=== PATIENT | female | born 1985 | race Caucasian/White ===

== ENCOUNTER 2025-04-04 11:41 | Emergency (ER) | payer OTHER, SELFPAY ==
--- NOTE | 2025-04-04 11:46 | ED.FEMALEGU ---
HPI - Female Genitourinary General Chief complaint: Urogenital-Female Stated complaint: Uti Symptoms Time Seen by Provider: 04/04/25 12:00 Source: patient Mode of arrival: ambulatory Limitations: no limitations History of Present Illness HPI Narrative: Alejandrina is a 40 year old female patient presenting to the clinic today with c/o possible UTI times 2-3 days. She reports burning, frequency, urgency, and low urine output. Denies any fevers, chills, nausea, vomiting. Reports she does have some lower abdomen/bladder discomfort and some pain to her right flank. History of kidney infection in the past. Last menstrual period was 1 month ago. No history of kidney stones. Related Data Allergies Allergy/AdvReac Type Severity Reaction Status Date / Time Penicillins Allergy Severe Anaphylacti Verified 04/04/25 12:13 c aspirin Allergy Intermediate Hives / Verified 04/04/25 12:13 Red Face diphenhydramine Allergy Intermediate Hives / Verified 04/04/25 12:13 Red Face Review of Systems Review of Systems: Pertinent positives per HPI. Patient denies any fever, chills, rash, headache, visual changes, dizziness, cough, shortness of breath, chest pain, palpitations, nausea, vomiting, diarrhea, constipation. PMFSH Comments At the time of my signature, I reviewed and agree with the nursing past medical, surgical, social, and family history. There is no relevant family history pertinent to the patient complaint. Exam Narrative: General: Well-developed, well nourished, in no apparent distress. Head: Normocephalic, atraumatic. Cardio: Regular rate and rhythm, s1 and s2 normal, no murmur appreciated. Resp: Clear to auscultation bilaterally, no rhonchi, rales, wheezing or rubs. Abdomen: Soft, pliable, bowel sounds present in all quadrants, suprapubic tender to palpation, no organomegly, right-sided CVAT tenderness. Course Course Level of Care: Express Care Visit Vital Signs Vital signs: Vital Signs Temperature 36.5 C 04/04/25 11:50 Pulse Rate 88 04/04/25 11:50 Respiratory Rate 20 04/04/25 11:50 Blood Pressure 118/97 H 04/04/25 11:50 Pulse Oximetry 100 04/04/25 11:50 Oxygen Delivery Room Air 04/04/25 11:50 Temperature 36.5 C 04/04/25 11:50 Pulse Rate 88 04/04/25 11:50 Respiratory Rate 20 04/04/25 11:50 Blood Pressure 118/97 H 04/04/25 11:50 Pulse Oximetry 100 04/04/25 11:50 Oxygen Delivery Room Air 04/04/25 11:50 MDM MDM Narrative Medical decision making narrative: At the time of visit patient is resting comfortably on the exam table. Patient appears to be nontoxic. C/o possible UTI times 2-3 days. She reports burning, hematuria, frequency, urgency, and low urine output. Denies any fevers, chills, nausea, vomiting.. Reports she does have some lower abdomen/bladder discomfort and some pain to her right flank. Last menstrual period was 1 month ago. History of kidney infection in the past. No history of kidney stones. On exam patient has soft, pliable, nondistended abdomen, tenderness over the suprapubic area, right CVAT tenderness, no organomegaly. Urine dip and bedside test was ordered Labs: Urinalysis positive for protein and blood. We will send urine for culture. Bedside test was negative. Plan: I suspect patient has UTI/possible early pyelo. No history of kidney stones. Prescription for Bactrim DS was sent to the pharmacy. Supportive measures were discussed with the patient and they voiced understanding discharge instructions and agrees to treatment plan. Return precautions reviewed Differential Diagnosis Differential Diagnosis: Differential diagnostic considerations for female urogenital issues include urinary tract infection, bacterial vaginosis, cervicitis, ovarian cyst, vaginitis, STI exposure, ovarian torsion, ectopic , cyst of Bartholin?s gland, cystitis, dysmenorrhea. Lab Data Labs: Lab Results 04/04/25 Range/Units 11:56 POC Urine Color Yellow POC Urine Clarity Clear POC Urine pH 6.0 POC Ur Specif Holliday 1.030 POC Urine Protein 2+ (Negative) POC Ur Glucose (UA) Negative (Negative) POC Urine Ketones Negative (Negative) POC Urine Blood 2+ (Negative) POC Urine Nitrite Negative (Negative) POC Urine Bilirubin Negative (Negative) POC Urine Urobilinogen 0.2 POC U Leukocyte Esteras Negative (Negative) Discharge Plan Discharge Clinical Impression: UTI (urinary tract infection) Qualifiers: Urinary tract infection type: acute cystitis Hematuria presence: with hematuria Qualified Code(s): N30.01 - Acute cystitis with hematuria Patient Disposition: Home Condition: Stable Instructions: Antibiotic Form, Urinary Tract Infection in Women (ED) Additional Instructions: UA positive for protein and blood. We will send urine for culture Bedside test was negative. Take Bactrim as prescribed Increase fluids and stay well hydrated Wipe front to back. May use wet wipes. Avoid tub baths If sexually active- pee before and after intercourse. Wear cotton panties Avoid tight clothing up against the genitals Follow up with your PCP in 1 week if symptoms persist. Patient Language: French Prescriptions: New sulfamethoxazole-trimethoprim [Bactrim DS] 800-160 mg tablet 1 tablet PO Q12H 7 Days Qty: 14 0RF Follow-up/Referrals: PHYSICIAN,[employer]CH[employer]IC [Primary Care Provider, Internal Medicine] Time of Disposition: 12:06 Quality NIHSS Nursing Documentation ED NIHSS nursing documentation: reviewed/agree
[2025-04-04 11:50] VITALS: BP 118/97; PULSE 88; RESP 20; TEMP 36.5; O2SAT 100
[2025-04-04 11:59] LABS: EDUAAPPEAR Clear; EDUABILI Negative (Negative); EDUABLOOD 2+ (Negative); EDUACOLOR1 Yellow; EDUAGLUCOSE Negative (Negative); EDUAKETONE Negative (Negative); EDUALEUKO Negative (Negative); EDUANITRATE Negative (Negative); EDUAPH 6.0; EDUAPROTEIN 2+ (Negative); EDUASPGRAVITY 1.030; EDUAUROBILI 0.2
[2025-04-04 12:19] LABS: BEDSIDEPREGUCG Negative (Negative)
== END 2025-04-04 12:10 | disposition home or self-care (01) ==
PROVIDERS: Emergency Provider Nurse Practitioner Family
DX: N30.01 Acute cystitis with hematuria (principal)
CPT/HCPCS: 81003; 81025; 87086; 99213; G0463

== ENCOUNTER 2025-04-05 17:35 | Emergency (ER) | payer OTHER, SELFPAY ==
[2025-04-05 17:36] VITALS: BP 147/86; PULSE 88; RESP 18; TEMP 36.4; O2SAT 100
[2025-04-05 18:58] LABS: Add Urine Microscopic? YES; Appearance Urine Clear (Clear); Glucose Urine UA Negative (Negative); Leukocyte Esterase Ur Trace LEU/UL (Negative); Need Manual Microscopic Reviewed; Nitrate Urine Negative (Negative); Non Pathogenic Casts 0-2; Specific Grav Ur 1.016 (1.001-1.035)
[2025-04-05 20:17] VITALS: BP 118/84; PULSE 85; RESP 19; TEMP 36.5; O2SAT 99
[2025-04-05 22:56] VITALS: BP 122/73; PULSE 87; RESP 18; TEMP 36.9; O2SAT 98
[2025-04-06 01:12] VITALS: BP 129/89; PULSE 88; RESP 18; TEMP 36.6; O2SAT 99
--- OUTSIDE RECORDS SUMMARY | 2025-04-06 01:51 | XMS_ITS | Data Portability ---
Author Organization [facility] PRIETO Bruno [facility] Address [address] [place] [address] Care Team Providers Care Bindery Library Technical Assistant Name Role Phone HANNABRAEDEN JIGNESH Primary Care Provider CARLOS AMAYA Credit Interviewer Unavailable Assessment No assessment recorded. Plan of Treatment Reminders Order Date Submit Date Provider Last Modified By Organization Details Last Modified Time Details Appointments None record ed. Lab cytolo gy report , thin prep, smear or scrapi ng, cervic al or vagina l 2023 024 [facility], [address], [address], [place], [address], 4 16:12:33 estrad iol, serum 2023 024 [facility], [address], [address], [place], [address], 4 07:08:41 testos terone , free + total, serum 2023 024 [facility], [address], [address], [place], [address], 4 07:08:40 TSH, ultra- sensit [place], serum 2023 024 [facility], [address], [address], [place], [address], 4 06:17:05 HbA1c (hemog lobin A1c), blood 2023 024 [facility], [address], [address], [place], [address], 4 06:17:06 cytolo gy report , thin prep, smear or scrapi ng, cervic al or vagina l 2019 020 [facility], [address], [address], [place], [address], 0 16:13:05 CBC w/ auto diff 2019 020 [place] [id number] [facility], [address] [place] [address], [address], [place], [address], 0 11:45:49 Referral clinic al therap ist referr al 2023 024 [facility], [address] [place] [address], [address], 4 17:31:03 Procedures None record ed. Surgeries None record ed. Imaging None record ed. Medication Orders fluoxe christiano 20 mg capsul e 2023 024 [id number], [address], [place], [place], [id number], 4 11:18:51 Prenat al 28 mg iron-8 00 mcg tablet [address] [id number], [address], [place], [place], [id number], 4 16:31:22 NuvaRi ng 0.12 mg-0.0 15 mg/24 hr vagina l 2019 020 [id number], [address], [place], [place], [id number], 10:47:00 Patient TargetsNo targets recorded. Patient Instructions Encounter Date Encounter Id Patient Instructions Last Modified By Organization Details Last Modified Time 11/17/2023 [id number] Attending Physician Attestation I did not personally see or examine the patient with the resident. I was physically present to provide indirect supervision through entire encounter. I have reviewed the documentation and agree with the history, physical findings, work-up, and medical decision making as recorded. Valenitn Garcia MD [facility]met[facility] Not available 11/17/2023 12:35:40 11/26/2023 [id number] A healthy lifestyle: care instructions [facility] Not available 11/26/2023 17:07:50 01/20/2024 [id number] A healthy lifestyle: care instructions [place] [id number] Not available 01/20/2024 11:18:38 learning about mood disorders [place] [id number] Not available 01/20/2024 11:18:38 Reason for Referral Clinical Therapist Referral for Irritability and anger Referring Physician: Billy Bradley, PURLER, Encounter Date: 11/26/2023 Results Created Date Observation Date Name Description Value Unit Range Abnormal Flag Note LastModifiedBy Organization Detail LastModifiedTime 01/28/2001/30/2020 cytol ogy repor t, thin prep, smear or scrap ing, cervi kelton or vagin al chlamydia, nuc. acid amp Negati ve negati ve Not Available [facility] ([facility]) [address] [place], [address], 02/01/2020 16:13:05 01/28/2001/30/2020 cytol ogy repor t, thin prep, smear or scrap ing, cervi kelton or vagin al gonococcus, nuc. acid amp Negati ve negati ve Not Available [facility] ([facility]) [address] [place], [address], 02/01/2020 16:13:05 01/28/2001/30/2020 cytol ogy repor t, thin prep, smear or scrap ing, cervi kelton or vagin al trich vag by PATRICIA Negati ve negati ve Not Available [facility] ([facility]) [address] [place], [address], 02/01/2020 16:13:05 01/28/2002/01/2020 cytol ogy repor t, thin prep, smear or scrap ing, cervi kelton or vagin al diagnosis: Chico mccann NEGAT [place] FOR INTRA EPITH ELIAL LESIO N OR ALBERTO ROJAS . CELLU LAR [place] ES ASSOC IATED WITH INFLA MMATI ON ARE PRESE NT. Not Available [facility] ([facility]) [address] [place], [address], 02/01/2020 16:13:05 01/28/2002/01/2020 cytol ogy repor t, thin prep, smear or scrap ing, cervi kelton or vagin al specimen adequacy: Chico mccann Satis facto ry for evalu ation . Endoc ervic al and/o r squam ous metap lasti c cells (endo cervi kelton compo nent) are prese nt. Not Available [facility] ([facility]) [address] [place], [address], 02/01/2020 16:13:05 01/28/2002/01/2020 cytol ogy repor t, thin prep, smear or scrap ing, cervi kelton or vagin al clinician provided ICD10: Chico mccann Z39.2 V24.2 Not Available [facility] ([facility]) [address] [place], [address], 02/01/2020 16:13:05 01/28/2002/01/2020 cytol ogy repor t, thin prep, smear or scrap ing, cervi kelton or vagin al performed by: Chico Kuhn ond, Cytot echno kurtis t (ASCP ) Not Available [facility] ([facility]) [address] [place], [address], 02/01/2020 16:13:05 01/28/2002/01/2020 cytol ogy repor t, thin prep, smear or scrap ing, cervi kelton or vagin al . . Not Available [facility] ([facility]) [address] [facility], [place], [address], 02/01/2020 16:13:05 01/28/20 20 02/01/2020 cytol ogy repor t, thin prep, smear or scrap ing, cervi kelton or vagin al note: Commen t The Pap smear is a scree beckie test desig joellen to aid in the detec tion of jorge ligna nt and malig nant condi tions of the uteri ne cervi x. It is not a diagn ostic proce dure and shoul d not be used as the sole means of detec ting cervi kelton cance r. Both false -posi tive and false -nega tive repor ts do occur . Not Available [facility] ([facility]) [address] [facility], [place], [address], 02/01/2020 16:13:05 01/28/2002/01/2020 cytol ogy repor t, thin prep, smear or scrap ing, cervi kelton or vagin al test methodology: Commen t This liqui d based ThinP rep(R ) pap test was scree joellen with the use of an image guide d systsandhya m. Not Available [facility] ([facility]) [address] [facility], [place], [address], 02/01/2020 16:13:05 01/28/2002/01/2020 cytol ogy repor t, thin prep, smear or scrap ing, cervi kelton or vagin al HPV aptima Negati ve negati ve This nucle ic acid ampli ficat ion test detec ts fourt een high- risk HPV types (16,1 8,31, 33,35 ,39,4 5,51, 52,56 ,58,5 9,66, 68) witho ut diffe renti ation . Not Available [facility] ([facility]) [address] [facility], [place], [address], 02/01/2020 16:13:05 11/17/19 24 11/18/2023 TSH RFX ON ABNOR MAL TO FREE T4 TSH 2.960 uIU/m L 0.450- 4.500 Not Available [facility] ([facility]) [address] [facility], [place], [address], 11/18/2023 06:17:05 11/17/1911/17/2023 HEMOG LOBIN A1C hemoglobin A1C 5.5 % 4.8-5. 6 Predi abete s: 5.7 - 6.4 Diabe laura: >6.4 Glyce dana contr ol for adult s with diabe laura: <7.0 Not Available [facility] ([facility]) [address] [facility], [place], [address], 11/18/2023 06:17:06 11/26/19 24 11/27/2023 IGP, APTIM A HPV, RFX 16/18 ,45 HPV aptima NEGATI VE negati ve This nucle ic acid ampli ficat ion test detec ts fourt een high- risk HPV types (16,1 8,31, 33,35 ,39,4 5,51, 52,56 ,58,5 9,66, 68) witho ut diffe renti ation . Not Available [facility] ([facility]) [address] [facility], [place], [address], 11/28/2023 16:12:33 11/26/19 24 11/28/2023 IGP, APTIM A HPV, RFX 16/18 ,45 diagnosis: COMMEN T NEGAT [place] FOR INTRA EPITH ELIAL LESIO N OR MALIG CRYSTAL . Not Available [facility] ([facility]) [address] [facility], [place], [address], 11/28/2023 16:12:33 11/26/19 24 11/28/2023 IGP, APTIM A HPV, RFX 16/18 ,45 specimen adequacy: CHICO Mccann Satis facto ry for evalu ation . Endoc ervic al and/o r squam ous metap lasti c cells (endo cervi kelton compo nent) are prese nt. Not Available [facility] ([facility]) [address] [place], [address], 11/28/2023 16:12:33 11/26/19 24 11/28/2023 IGP, APTIM A HPV, RFX 16/18 ,45 clinician provided ICD10: CHICO Mccann Z01.4 19 R45.4 Not Available [facility] ([facility]) [address] [place], [address], 11/28/2023 16:12:33 11/26/19 24 11/28/2023 IGP, APTIM A HPV, RFX 16/18 ,45 performed by: CHICO arthur Radcl iff, Cytot echjavier hull t (ASCP ) Not Available [facility] ([facility]) [address] [place], [address], 11/28/2023 16:12:33 11/26/19 24 11/28/2023 IGP, APTIM A HPV, RFX 16/18 ,45 . . Not Available [facility] ([facility]) [address] [place], [address], 11/28/2023 16:12:33 11/26/19 24 11/28/2023 IGP, APTIM A HPV, RFX 16/18 ,45 note: CHICO Mccann The Pap smear is a scree beckie test desig joellen to aid in the detec tion of jorge ligna nt and malig nant condi tions of the uteri ne cervi x. It is not a diagn ostic proce dure and shoul d not be used as the sole means of detec ting cervi kelton cance r. Both false -posi tive and false -nega tive repor ts do occur . Not Available [facility] ([facility]) [address] [place], [address], 11/28/2023 16:12:33 11/26/19 24 11/28/2023 IGP, APTIM A HPV, RFX 16/18 ,45 test methodology: COMMEN T This liqui d based ThinP rep(R ) pap test was felicitae joellen with the use of an image guide malia bryant Not Available [facility] ([facility]) [address] [place], [address], 11/28/2023 16:12:33 11/26/19 24 11/28/2023 IGP, APTIM A HPV, RFX 16/18 ,45 HPV genotype reflex COMMEN T Crite lauren not met, HPV Genot ype not perfo rmed. Not Available [facility] ([facility]) [address] [place], [address], 11/28/2023 16:12:33 11/26/19 24 11/27/2023 TESTO STERO NE,FR EE AND TOTAL testosterone 18 NG/dL 8-60 Not Available [facility] ([facility]) [address] [place], [address], 11/30/2023 07:08:40 11/26/19 24 11/29/2023 TESTO STERO NE,FR EE AND TOTAL free testosterone (direct) 0.7 pg/mL 0.0-4. 2 Not Available [facility] ([facility]) [address] [place], [address], 11/30/2023 07:08:40 11/26/19 24 11/27/2023 ESTRA DIOL estradiol 104.0 pg/mL Adult Femal e Range Folli cular phase 12.5 - 166.0 Ovula tion phase 85.8 - 498.0 Lutea l phase 43.8 - 211.0 Postm enopa usal <6.0 - 54.7 Pregn aden 1st trime ster 215.0 - >4300 .0 Onel ECLIA metho dolog y Not Available [facility] ([facility]) [address], [place], [address], 11/30/2023 07:08:41 Result Notes None recorded. Problems No Known Problems Procedures Surgical History Date Name Laterality Status Provider Name and Address Organization Details Recorded Time 11/26/2023 Date of Last Pap Smear completed Swetha Elliott RN [facility] 11/28/2023 17:33:09 Imaging Results None recorded. Procedure Notes None recorded. Medical Equipment None Reported. Allergies Allergen ID Allergen Name Allergen Category Reaction Reaction Severity Criticality Documentation Date Start Date Code Code System Note Provider Name and Address Organization Details Recorded Time 09224 aspirin medicatio n edema hives Not available Not available Not available 12/30/2016 1191 RxNorm PORTER Waters, [facility] 7 11:43:23 95901 Product containin g penicilli n (product) medicatio n other Not available Not available 12/30/2016 92044 8001 SNOMED PORTER Waters, [facility] 7 11:44:23 94694 Benadryl medicatio n other Not available Not available 12/30/201679155 7 RxNorm PORTER Waters, [facility] 7 11:44:38 Medications Name Sig Start Date Stop Date Status Note LastModified by Organization Details LastModified Time doxycycline hyclate 100 mg capsule 11/16 completed Not Available Not Available Not Available clindamycin HCl 300 mg capsule TAKE ONE CAPSULE BY MOUTH EVERY 6 HOURS FOR SEVEN DAYS 04/11 completed Not Available Not Available Not Available Stool Softener 100 mg capsule 04/11 completed Not Available Not Available Not Available azithromyci n 250 mg tablet TK 2 TS PO ON DAY 1, THEN TK 1 T PO D FOR 4 DAYS 11/16 completed Not Available Not Available Not Available hydrocodone 5 mg-acetamin ophen 325 mg tablet TAKE ONE TABLET BY MOUTH EVERY 6 HOURS NEEDED FOR PAIN 04/11 completed Not Available Not Available Not Available promethazin e 12.5 mg tablet Take 1 tablet 4 times a day by oral route as needed. 04/11 completed Not Available Not Available Not Available metronidazo le 0.75 % (37.5 mg/5 gram) vaginal gel Insert 1 applicato rful every day by vaginal route. 09/06 completed Not Available Not Available Not Available prednisone 20 mg tablet 05/26 completed Not Available Not Available Not Available permethrin 5 % topical cream 11/16 completed Not Available Not Available Not Available clindamycin HCl 150 mg capsule 04/11 completed Not Available Not Available Not Available acetaminoph en 300 mg-codeine 30 mg tablet TAKE ONE TABLET BY MOUTH FOUR TIMES DAILY NEEDED FOR PAIN 11/16 completed Not Available Not Available Not Available acyclovir 400 mg tablet Take 1 tablet 5 times a day by oral route for 7 days. 04/11 completed Not Available Not Available Not Available sulfamethox azole 800 mg-trimetho prim 160 mg tablet TAKE 1 TABLET BY MOUTH TWICE DAILY FOR 7 DAYS 11/16 completed Not Available Not Available Not Available Vitamin tablet Take 1 tablet every day by oral route. 05/17 completed Not Available Not Available Not Available cephalexin 500 mg capsule TAKE ONE CAPSULE BY MOUTH TWICE DAILY X 10 DAYS 11/16 completed Not Available Not Available Not Available ferrous sulfate 325 mg (65 mg iron) tablet 04/11 completed Not Available Not Available Not Available triamcinolo ne acetonide 0.1 % topical ointment APPLY A THIN LAYER TO THE AFFECTED AREA(S) BY TOPICAL ROUTE 2 TIMES PER DAY 04/11 completed Not Available Not Available Not Available sertraline 25 mg tablet TAKE 1 TABLET BY MOUTH EVERY DAY 04/11 completed Not Available Not Available Not Available ibuprofen 600 mg tablet TAKE ONE TABLET BY MOUTH EVERY 6 HOURS NEEDED FOR PAIN 04/11 completed Not Available Not Available Not Available methylpredn isolone 4 mg tablets in a dose pack Follow dose pack instructi ons 12/14 completed Not Available Not Available Not Available norethindro ne (contracept [place]) 0.35 mg tablet TAKE 1 TABLET BY MOUTH EVERY DAY 04/11 completed Not Available Not Available Not Available fluoxetine 20 mg capsule one po qday CALL THE OFFICE FOR AN APPT PLEASE 2024 active Not Available Not Available Not Avai lable Ventolin HFA 90 mcg/actuati on aerosol inhaler 04/11 completed Not Available Not Available Not Available NuvaRing 0.12 mg-0.015 mg/24 hr vaginal Insert 1 vaginal ring every month by vaginal route. 05/17 completed Not Available Not Available Not Available Havrix (PF) 1,440 CASPER unit/mL intramuscul ar syringe 10/29 completed Not Available Not Available Not Available RhoGAM Ultra-Filte red PLUS 1,500 unit (300 mcg) intramuscul ar syringe Inject 1 syringe by intramusc ular route. 04/11 completed Not Available Not Available Not Available Recombivax HB (PF) 10 mcg/mL intramuscul ar suspension 10/29 completed Not Available Not Available Not Available 28 mg iron-800 mcg tablet TAKE 1 TABLET DAILY; please call the office for an overdue appt please 2024 active Not Available Not Available Not Avai lable Slynd 4 mg (28) tablet TAKE 1 TABLET BY MOUTH EVERY DAY 04/11 completed Not Available Not Available Not Available ID NOW COVID-19 Test Kit TEST DIRECTED 04/11 completed Not Available Not Available Not Available Vitals Date Recorded Body height Body mass index (BMI) Body weight Provider Name and Address Organization Details Last Updated DateTime 04/11/2021 167.64 cm 26.3 kg/m2 05694.7 g Lidia Jay [place] [facility] 04/11/2021 10:12:25 Date Recorded Body height Body mass index (BMI) Body weight Heart rate Oxygen saturation Body temperature Respiratory rate Systolic And Diastolic Provider Name and Address Organization Details Last Updated DateTime 167.64 cm 28 kg/m2 58453.2 8 g 93 /min 98 % 97.7 [degF] 16 /min 117/79 mm[Hg] Thalia Haynes [place] - [facility] 4 10:33:24 Date Recorded Body height Body mass index (BMI) Body weight Systolic And Diastolic Provider Name and Address Organization Details Last Updated DateTime 11/26/2023 167.64 cm 27.7 kg/m2 00273.17 g 131/83 mm[Hg] Thalia Haynes MA [facility] 11/26/2023 11:32:57 Date Recorded Body height Body mass index (BMI) Body weight Heart rate Systolic And Diastolic Provider Name and Address Organization Details Last Updated DateTime 01/20/2024 167.64 cm 26.8 kg/m2 76760.33 g 73 /min 131/80 mm[Hg] Dorothy Ramos MA [facility] 01/20/2024 10:51:59 Date Recorded Body height Body mass index (BMI) Body weight Systolic And Diastolic Provider Name and Address Organization Details Last Updated DateTime 01/28/2020 167.64 cm 25.7 kg/m2 29913.186 83 g 108/64 mm[Hg] Thalia Haynes MA [facility] 01/28/2020 11:07:31 Social History Question Answer Notes LastModified by Organizat ion Details LastModified Time Tobacco Smoking Status Never Smoker Vanessa Chambers MA [facility], [facility] 12/30/2016 11:46:19 What Is Your Level Of Caffeine Consumption? Moderate [email or web address] Information not available 04/11/2021 In The 14 Days Before Symptom Onset, Have You Had Close Contact With A Laboratory-confirm ed COVID-19 While That Case Was Ill? No [email or web address] Information n ot available 04/11/2021 In The 14 Days Before Symptom Onset, Have You Had Close Contact With A Person Who Is Under Investigation For COVID-19 While That Person Was Ill? No Information not available 04/11/2021 Have You Been To An Area Known To Be High Risk For COVID-19? No Information not available 04/11/2021 Have There Been Any Changes To Your Family Or Social Situation? No [email or web address] Information no t available 04/11/2021 What Was The Date Of Your Most Recent Tobacco Screening? 11/26/2023 Information not available 11/26/2023 Do You Use Your Seat Belt Or Car Seat Routinely? Yes [email or web address] Information not available 04/11/2021 Are You Sexually Active? Yes Information not available 04/11/2021 Do You Have Smoke And Carbon Monoxide Detectors In Your Home? Yes Information not available 11/26/2023 Are You Passively Exposed To Smoke? No [email or web address] Information no t available 04/11/2021 How Much Tobacco Do You Smoke? No Information not available 05/26/2019 Do You Use Sunscreen Routinely? Yes Information not available 04/11/2021 On What Date Was Tobacco Cessation Counseling Provided? 11/26/2023 Information not available 11/26/2023 How Many Years Have You Smoked Tobacco? 0 Information not available 05/26/2019 Sex: Female Functional Status Question Answer Note LastModified by Organizat ion Details LastModified Time Do you use any illicit or recreational drugs? No [email or web address] Information not available 04/11/2021 Do you or have you ever used any other forms of tobacco or nicotine? No [email or web address] Information not available 04/11/2021 What is your level of alcohol consumption? None Information not available 04/11/2021 Do you or have you ever used smokeless tobacco? Never used smokeless tobacco Information not available 05/26/2019 Do you or have you ever used e-cigarettes or vape? Never used electronic cigarettes Information not available 05/26/2019 Mental Status Question Answer Note LastModified by Organization D etails LastModified Time Do you feel stressed (tense, restless, nervous, or anxious, or unable to sleep at night)? [id number] Information not available 04/11/2021 Family History Relationship Description Onset Age of this Age Resolved Age Notes LastModified by Organization Details LastModified Time Mother Disorder of thyroid gland [email or web address] Not available 2016 11:45:36 Mother Hypertensive disorder [email or web address] Not available 2016 11:46:01 Mother Heart disease [email or web address] Not available 2023 10:38:02 Mother Aneurysm [email or web address] Not available 11/26/2023 11:43:29 Father Disorder of thyroid gland [email or web address] Not available 2016 11:45:36 Father Diabetes mellitus [email or web address] Not available 2016 11:45:44 Father Hypertensive disorder [email or web address] Not available 2016 11:46:01 Father Hypercholest erolemia amcmanis Not available 2016 11:46:13 Father Heart disease [email or web address] Not available 2023 10:37:51 Sister Disorder of thyroid gland [email or web address] Not available 2016 11:45:36 Medical History Condition Response Other N High Blood Pressure N Breast Cancer N Thyroid Problems N Kidney or Bladder Problems N Lung Disease N Depression N Blood Clots N GI Problems N Acne N Breast Problem N Eating Disorder N Anemia N Anesthesia Complications N Headaches/Migraines N Ovarian Cancer N Diabetes N Anxiety Disorder N Muscle, Joint, or Bone Problems N Blood Transfusions N Seizures/Epilepsy N Polyps N Infertility N Acid Reflux (GERD) N Cancer N Abuse/Domestic Violence N Asthma N Endometriosis N High Cholesterol N Hepatitis N Liver Disease N Heart Disease N Pre-Eclampsia N Osteoporosis N Gynecological History Statement/Question Response Flow Moderate Date of LMP 11/04/2023 On BCP's at Conception? N STIs/STDs N Duration of Flow (days) 2 Age at Menarche 12 Current Control Method None Age at First Child 34 Sexually Active? Y Menses Monthly Y Date of Last Pap Smear 11/26/2023 Sexual Problems? N LMP Approximate Desired Control Method Unknown Obstetrics History GPAL:G 1 P 1 0 0 1 Type Value Full Term 1 Living 1 Total 1 Immunizations Vaccine Type Date Status Note Provider Nam e and Address Organization Details Recorded Time COVID-19, mRNA, LNP-S, PF, 30 mcg/0.3 mL dose 12/07/2020 completed VALENTIN GARCIA MD Attn: [address] [place], [address], [place] [facility] 11/17/2023 12:34:00 COVID-19, mRNA, LNP-S, PF, 30 mcg/0.3 mL dose 12/28/2020 completed VALENTIN GARCIA MD Attn: [address] [place], [address], [place] [facility] 11/17/2023 12:34:00 Tdap 07/19/2015 completed VALENTIN GARCIA MD Attn: [address] [place], [address], [place] [facility] 11/17/2023 12:34:00 Influenza, split virus, trivalent, PF 03/13/2015 completed VALENTIN GARCIA MD Attn: [address] [facility], [place], [address], [place] [facility] 11/17/2023 12:34:00 Hep B, adult 07/19/2015 completed VALENTIN GARCIA MD Attn: [address] [facility], [place], [address], [facility] - [facility] 11/17/2023 12:34:00 Hep B, adult 07/24/2016 completed VALENTIN GARCIA MD Attn: [address]ing[address] [facility], [place], [address], [place] [facility] 11/17/2023 12:34:00 Hep B, adult 09/23/2015 completed VALENTIN GARCIA MD Attn: [address] [facility], [place], [address], [facility] - [facility] 11/17/2023 12:34:00 Hep A, adult 05/26/2017 completed VALENTIN GARCIA MD Attn: [address] [facility], [place], [address], [place] [facility] 11/17/2023 12:34:00 Hep A, adult 09/23/2016 completed VALENTIN GARCIA MD Attn: [address] [facility], [place], [address], [place] [facility] 11/17/2023 12:34:00 Influenza, split virus, quadrivalent, PF 01/18/2023 completed VALENTIN GARCIA MD Attn: [address] [facility], [place], [address], [place] [facility] 11/17/2023 12:34:00 Influenza, split virus, quadrivalent, PF 05/26/2019 completed PORTER [place] [facility] 05/26/2019 09:36:03 Tdap 09/28/2019 completed PORTER [place] [facility] 09/28/2019 15:06:52 Past Encounters Encounter ID Performer Location Encounter Start Date Encounter Closed Date Diagnosis/Indication Diagnosis SNOMED-CT Code Diagnosis ICD10 Code Diagnosis IMO Codes Diagnosis Note [id number] Tony Carolina MD Jhonny Womens (DEMETRIUS 205) [address] [facility] [address] [place] [address] 12/30/2016 11:33:47 12/30/2016 16:00:43 Adult health examination [id number] Z00.00 Counseled on the importance of healthy diet and exercise for weight loss. Fasting lab work. Advised adequate calcium intake through dairy and dark leafy vegetables . Adequate hydration and decrease soda intake. Advised on immunizati ons-UTD Missed period [id number] N 92.5 will do test-advis ed to f/u with obstetrics gyn [id number] MD Jhonny Monzon 14 OB [address] [facility] [address] [place] [address] 10/29/2017 10:59:17 10/31/2017 09:17:45 Routine gynecologic examination done [id number] 9101 Z01.419 -Educated on the importance of SBE and awareness. -Discussed the importance of cervical cancer screenings -Educated osteoporos is prevention including calcium rich foods, weight bearing exercise. -Discussed the importance of exercise. -Nutrition discussed and the importance of a diet rich in fruits, vegetable, whole grains, and lean proteins. -Counseled regarding prevention of STD's and screening options, condom use and prevention . -Advised avoidance of tobacco, alcohol, and drugs. -Discussed sun safety and the importance of sunscreen. Menstrual period late 84 277318 N92.6 Urine test negative. HCG serum ordered as well to rule out early . Patient notified to track her period call office if issues with periods occur. Patient notified if experience s in pelvic pain to call office and is severe she needs to go to ED. Follow up based on HCG results. Contracept ion care management 375379089 Z30.9 Discussed contracept ion methods. Patient not interested in any methods other than condoms at this time. Patient aware of her increased risk for unplanned . Discussed prevention of NTD with patient. Patient interested in supplement . vitamin ordered for folic acid supplement to help prevent against NTD. [id number] MD Jhonny Nguyen 14 OB [address] [facility] [address] [place] [address] 01/13/2019 09:28:46 01/14/2019 10:33:44 Possible [id number] Z32.00 [id number] MD Jhonny Nguyen 14 OB [address] [facility] [place] [address] 05/11/2019 14:27:07 05/12/2019 09:20:09 Early stage of 457907172 Z34.91 Nausea and vomiting 1693 2000 R11.2 [id number] MD Jhonny Nguyen 14 OB [address] [facility] [place] [address] 05/26/2019 09:16:29 05/27/2019 09:40:32 Active or passive immunization 393924944 Z23 Advanced m aternal age 321884202 O09.899 Congenital abnormality of uterus, affecting 88986572 O34.01 possible septate uterus seen on ultrasound Obtain sonogram at [facility] Routine an tenatal care 417606460 Z34.91 [id number] MD Jhonny Nguyen 14 OB [address] [facility] [place] [address] 06/22/2019 16:59:36 06/23/2019 09:16:30 Vaginal discharge 338997192 N89.8 Routine an tenatal care 980851192 Z34.91 [id number] MD Jhonny Nguyen 14 OB [address] [facility] [place] [address] 07/21/2019 09:58:51 07/28/2019 11:27:05 Routine care 536493370 Z34.91 [id number] MD Jhonny Nguyen 14 OB [address] [facility] [place] [address] 08/11/2019 10:59:06 08/12/2019 07:59:52 Pityriasis rosea 93895829 L42 Routine an tenatal care 554440691 Z34.91 At [facility] risk of urinary tract infection 785427912 Z91.89 [id number] MD Jhonny Nguyen 14 OB [address] [facility] [place] [address] 09/07/2019 11:01:40 09/08/2019 10:48:18 Routine care 532956169 Z34.91 [id number] MD Jhonny Nguyen 14 OB [address] [facility] [place] [address] 09/28/2019 14:49:26 09/29/2019 13:09:56 Routine care 881848662 Z34.91 Active or passive immunization 176425949 Z23 [id number] MD Jhonny Nguyen 14 OB [address] [facility] [place] [address] 10/05/2019 13:40:34 10/06/2019 12:07:46 Routine care 976113166 Z34.91 [id number] MD Jhonny Nguyen 14 OB [address] [facility] [place] [address] 10/26/2019 11:28:00 10/29/2019 11:43:56 Routine care 727067904 Z34.91 [id number] MD Jhonny Nguyen 14 OB [address] [facility] [place] [address] 11/10/2019 11:09:43 11/11/2019 13:33:10 Routine care 148879074 Z34.91 [id number] MD Jhonny Nguyen 14 OB [address] [facility] [place] [address] 11/24/2019 10:13:46 11/25/2019 10:31:33 Routine care 372459421 Z34.91 [id number] MD Jhonny Nguyen 14 OB [address] [facility] [place] [address] 12/01/2019 10:09:30 12/02/2019 10:43:35 Routine care 818854206 Z34.91 [id number] MD Jhonny Nguyen 14 OB [address] [facility] [place] [address] 12/08/2019 11:40:59 12/09/2019 10:24:05 Routine care 937070777 Z34.91 [id number] MD Jhonny Nguyen 14 OB [address] [facility] [place] [address] 12/15/2019 09:28:55 12/16/2019 10:07:00 Routine care 328211134 Z34.91 [id number] MD Jhonny Nguyen 14 OB [address] [facility] [place] [address] 01/28/2020 10:27:38 01/31/2020 13:09:17 Postoperative visit 165221349 Z09 care 91719005 8 Z39.2 Contracept ion care management 132789693 Z30.9 [id number] MD Jhonny Nguyen 14 OB [address] [facility] [address] [place] [address] [address] 04/11/2021 10:00:14 04/15/2021 15:09:11 Gynecologic examination 50022297 Z01.419 -CBE and pelvic exam performed [id number] MD Jhonny BACA 14 IM [address] [facility] [place] [address] 11/17/2023 10:20:42 11/19/2023 10:09:15 Overweight 705017512 E66.3 Reports has not lost 20 of the 40 lbs since 3-4 years ago. Encouraged 7-8 hours of sleep. Healthy lifestyle encouraged including regular exercise of at least 150min per week, diet rich in plant based foods and low in added sugars, processed carbohydra laura, and high salt foods. Will check thyroid. Will check A1c given 1st degree relative with hx of diabetes. [id number] MD Jhonny Nguyen [address] [place] [address] [place] [address] 11/26/2023 11:20:35 11/28/2023 19:03:11 Gynecologic examination 99033792 Z01.419 -CBE and pap smear performed Irritabili ty and anger 661743767 R45.4 --RTC in 1 month for follow up Reproducti ve care management 700189794 Z31.9 Overweight 848438648 E66 .3 Depression screening 171 578965 Z13.31 --PHQ9=10- -Pt referred to therapy--R TC in 1 month for follow up [id number] MD Johnny Nguyen [address] [place] [address] [place] [address] 01/20/2024 10:43:35 01/22/2024 12:23:30 Overweight 871109961 E66.3 Depressive disorder 6739 9007 F32.A --improved Health Concerns Section Related Observation LastModified by Organization Detai ls LastModified Time None Recorded Concern Status LastModified by Organization Details LastModified Time None Recorded Advance Directives Directive None Recorded Payers Insurance Date Sequence Insurance Name Policy Number Policy Caballero Covered Member ID Caballero Member ID Guarantor Name 07/24/2018 1 [place] [id number] Renan Su [id number] Jenn Rubio Su 04/11/2021 2 *SELF PAY* Ki mitch Rubio Su 07/24/2018 1 [place] [id number] Renan Su [id number] Jenn Rubio Su 12/10/2022 1 UMR [id number] Renna Su [id number] Jenn Rubio 01/20/2024 1 [employer] (PPO) [id number] Renan Su [id number] Jenn Rubio Su 07/24/2018 1 [place] [id number] Renan Su [id number] Jenn Rubio 07/24/2018 1 [place] [id number] Renan Su [id number] Jenn Rubio Su Notes Date Note Type Note Provider Name and Address Organization Details Recorded Time 0 text/html VisitReported by PatientHPIFor onset/timing, patient reportsdate of delivery: (12/18/19). For quality, patient reportsprimary lst c/s. For context, patient reportscomplications of labor: arrest of descent, complications: __,feeding choice: breast, andgood support from partner/family. For associated symptoms, patient reportsno abnormal bleeding,no pelvic pain,no constipation,no fecal incontinence,no dysuria,no urinary incontinence,no fever,no problems, andno mastitis.ROS as noted in the HPI Billy Bradley MD Attn: Accounting,[address] [place], [address], [place] - [facility] 01/28/2020 15:06:28 2 text/html Annual GYNReported by PatientGenitourinary symptomsFor menstrual cycle, patient reportsnormal menses. For urinary symptoms, patient reportsno hematuriaandno incontinence. For vulva, patient reportsno genital lesion. For vagina, patient reportsnormal vaginal discharge.Breast symptomsFor breast, patient reportsno breast pain,no breast lump, andno nipple discharge.Endocrine symptomsFor sexual complaints, patient reportsno sexual complaints,no pain during intercourse, andnormal libido. For menopausal symptoms, patient reportsno menopausal symptomsandnormal vaginal lubrication.Psychological symptomsFor psychological symptoms, patient reportsno depression,no anxiety, andno pmdd.ROS as noted in the HPI Billy Bradley MD Attn: Accounting,[address] [facility], [place], [address], [facility] 04/11/2021 11:15:33 4 text/html ROS as noted in the HPI Alejandrina Barajas (not Yenny) is a 38 y/o female who presents to the clinic to establish care. Has not seen a primary care in many years. Does see OB.Is concerned that she lost only 20 of the 40 lbs she gained during her a couple of years ago. Wonders if her thyroid is not functioning right. States she has been active. She breastfed for a year. States diet has not changed. Doesn't sleep 7-8 hours though.No chest pain, SOB, skin or hair changes, palpitations, constipation or diarrhea. PMHx: nonePSHx:FHx:mom- thyroid disorder, HTNdad- coronary artery disease, heart failure, defibrillator, HTN, thyroid disorder, DM, high cholesterolSocHx:- EtOH: none- Tobacco: none- Drug Use: noneOBGynHx: Sees Dr. Kirk GARCIA MD Attn: Accounting,[address] [facility], [place], [address], [facility] 11/18/2023 19:43:15 4 text/html Annual GYNReported by PatientHistoryFor history, patient reportsno gynecologic complaintsandplanning in the near future(patient states she has been angry lately and does not have any particular trigger. she is easily irritated by her dog, daughter and pets. she states she is currently in school but this problem began prior to starting to school and she states that she thinks it is worsening.).Genitourinary symptomsFor menstrual cycle, patient reportsnormal menses. For urinary symptoms, patient reportsno hematuriaandno incontinence. For vulva, patient reportsno genital lesion. For vagina, patient reportsnormal vaginal discharge.Breast symptomsFor breast, patient reportsno breast pain,no breast lump, andno nipple discharge.ContraceptionFor current contraception, patient reportsmonogamous relationship.Endocrine symptomsFor sexual complaints, patient reportsno sexual complaints,no pain during intercourse, andnormal libido. For menopausal symptoms, patient reportsno menopausal symptomsandnormal vaginal lubrication.Psychological symptomsFor psychological symptoms, patient reportsno depression,no anxiety, andno pmdd.ROS as noted in the HPI Billy Bradley MD Attn: Accounting, [place], [address], [facility] 11/26/2023 17:08:38 4 text/html ROS as noted in the HPI Patient presents for follow up on medication for depression. She states that the medication has helped improve her mood and she no longer is short with her daughter or . She denies any other complaints. Billy Bradley MD Attn: Accounting, [place], [address], [facility] 01/20/2024 11:18:58 OBGyn Episode Ob Episode Information Episode Created Date Number of Fetuses Patient Bloodtype Patient rh Status Prepregnancy Weight lbs Domestic Partner Domestic Partner Phone Father Name Line Haul Driver Status 01/28/20 20 1 DELETED Sebastian Calculation Initial Sebastian Date Initial Exam Date Initial Exam Provider Initial Ultrasound Date Last Menstrual Period Date Ultra Sound Weeks Gestation 0 Eighteen To Twenty Week Sebastian Update Ultra Sound Date Fundal Height At Umbil Quickening Date Ultra Sound Latest Weeks Gestation Final Sebastian Confirmed By Final Sebastian Confirmed Date Final Sebastian Date Ultra Sound Latest Days Gestation 0 0 Menstrual History Last Menstrual Date Menses Monthly On Bcp Conception Prior Menses Frequency Hcg Plus Date Menarche Onset Age Delivery Information Delivery Date Delivery Type Labor Anesthesia Weeks Gestation Incision Type Labor Labor Length Hrs Delivered By Post Complications Tubal Sterilization Discharge Date Comments 0 Regional- idural 39 false Discharge Information Feeding Method Contraceptive Method Maternal HG B and HCT Levels Ob Episode Information Episode Created Date Number of Fetuses Patient Bloodtype Patient rh Status Prepregnancy Weight lbs Domestic Partner Domestic Partner Phone Father Name Line Haul Driver Status 05/11/19 20 1 B Negative CLOSED Fetus Data First Name Last Name Admitted to NICU Weight (g) Sex Living Outcome Pediatric Complications Fetus ID Race Codes Race Delivery Type [id number] 75 F [id number] White Problems Problem Notes Line Haul Driver unknown. If boy , yes to circ. Yes to epidural. Plans to breast feed. PPBC undecided.Varicella non-immuneNIPT negativeFetal abdominal mass- possible ovarian cyst noted on ultrasound at 31 weeks.- resolved on follow up sonogram Problem Name Start Date End Date Resolution Snomed Code Not e Administration of diphtheria, pertussis, and tetanus vaccine 09/28/2019 [id number] Congenital abnormality of uterus, affecting 05/26/2019 62203616 Septate uterus Pityriasis rosea 92382946 Advanced maternal age 05/26/2019 689991647 RhD negative 130971365 Rhogam at 28 weeks Sebastian Calculation Initial Sebastian Date Initial Exam Date Initial Exam Provider Initial Ultrasound Date Last Menstrual Period Date Ultra Sound Weeks Gestation 12/24/2019 05/11/2019 [place] [address] 05/19/2019 03/19/2019 9 Eighteen To Twenty Week Sebastian Update Ultra Sound Date Fundal Height At Umbil Quickening Date Ultra Sound Latest Weeks Gestation Final Sebastian Confirmed By Final Sebastian Confirmed Date Final Sebastian Date Ultra Sound Latest Days Gestation 0 [place] [address] 05/20/2019 12/24/19 20 0 Pre-elder Flowsheet Flowsheet Date 05/11/2019 Blanco Score Blood Edema Fundus Height Fundus Units Glucose Ketones Leukocytes Nitrite Labor Signs Protein Cervic Dilation Cervic Effacement Cervic Station neg none none negative none neg Type Weight in lbs Pre/Post Dialysis Refused With clothes 149.636619889328 BP Diastolic BP Location Tested BP Systolic BP Type 82 132 sitting Fetus Heart Rate Present Fetus Movement Comments Patient presents for initial visit. Nutritional counseling performed. Will obtain labs and dating sonogram has been scheduled. RTC in 2 weeks for CBE and pap smear. Flowsheet Date 05/26/2019 Blanco Score Blood Edema Fundus Height Fundus Units Glucose Ketones Leukocytes Nitrite Labor Signs Protein Cervic Dilation Cervic Effacement Cervic Station Type Weight in lbs Pre/Post Dialysis Refused With clothes 150.359239795553 BP Diastolic BP Location Tested BP Systolic BP Type 86 122 sitting Fetus Heart Rate Present Fetus Movement Comments Patient presents to discuss septate uterus, will send to [facility] for follow up. Flowsheet Date 06/22/2019 Blanco Score Blood Edema Fundus Height Fundus Units Glucose Ketones Leukocytes Nitrite Labor Signs Protein Cervic Dilation Cervic Effacement Cervic Station neg none none negative none neg Type Weight in lbs Pre/Post Dialysis Refused With clothes 147.295539486793 BP Diastolic BP Location Tested BP Systolic BP Type 76 114 sitting Fetus Heart Rate Present Fetus Movement Comments CBE and pelvic exam performe d. Patient denies any complaints. RTC in 4 weeks. Flowsheet Date 07/21/2019 Blanco Score Blood Edema Fundus Height Fundus Units Glucose Ketones Leukocytes Nitrite Labor Signs Protein Cervic Dilation Cervic Effacement Cervic Station neg none none trace none neg Type Weight in lbs Pre/Post Dialysis Refused With clothes 154.120980937442 BP Diastolic BP Location Tested BP Systolic BP Type 74 116 sitting Fetus Heart Rate Present A 140's Present Fetus Movement A Yes Comments AFP today. Patient denies an y complaints. RTC in 4 weeks. Flowsheet Date 08/11/2019 Blanco Score Blood Edema Fundus Height Fundus Units Glucose Ketones Leukocytes Nitrite Labor Signs Protein Cervic Dilation Cervic Effacement Cervic Station neg none none negative none neg Type Weight in lbs Pre/Post Dialysis Refused With clothes 161.046811306789 BP Diastolic BP Location Tested BP Systolic BP Type 84 134 sitting Fetus Heart Rate Present A 140-150's Present Fetus Movement A Yes Comments Patient complains of rash th at is worsening. Benadryl provides some relief but the itching returns after 30 mins. She denies any change in detergent, perfume, and outside activity. Upon review the patient has pityriasis rosea, acyclovir has been prescribed. Encouraged continued use of benadryl. RTC in 4 weeks. Flowsheet Date 09/07/2019 Blanco Score Blood Edema Fundus Height Fundus Units Glucose Ketones Leukocytes Nitrite Labor Signs Protein Cervic Dilation Cervic Effacement Cervic Station neg none 25 cm none negative none neg Type Weight in lbs Pre/Post Dialysis Refused With clothes 167.181445736274 BP Diastolic BP Location Tested BP Systolic BP Type 70 110 sitting Fetus Heart Rate Present A 140-150's Present Fetus Movement A Yes Comments Patient denies any complaint s. Will RTC tomorrow for DMS. CBC today. labor precautions given. RTC in 3 weeks. Flowsheet Date 09/28/2019 Blanco Score Blood Edema Fundus Height Fundus Units Glucose Ketones Leukocytes Nitrite Labor Signs Protein Cervic Dilation Cervic Effacement Cervic Station neg none 28 cm none negative none neg Type Weight in lbs Pre/Post Dialysis Refused With clothes 175.245331152216 BP Diastolic BP Location Tested BP Systolic BP Type 86 136 sitting Fetus Heart Rate Present A 140's Present Fetus Movement A Yes Comments Patient denies any complaint s. Tdap vaccine today. She admits to , denies VB, LOF and CTXs. Will RTC in 1 week for Rhogam. will come to clinic for Tdap. RTC for routine care in 3 weeks. Flowsheet Date 10/05/2019 Blanco Score Blood Edema Fundus Height Fundus Units Glucose Ketones Leukocytes Nitrite Labor Signs Protein Cervic Dilation Cervic Effacement Cervic Station Type Weight in lbs Pre/Post Dialysis Refused BP Diastolic BP Location Tested BP Systolic BP Type Fetus Heart Rate Present Fetus Movement Comments Flowsheet Date 10/26/2019 Blanco Score Blood Edema Fundus Height Fundus Units Glucose Ketones Leukocytes Nitrite Labor Signs Protein Cervic Dilation Cervic Effacement Cervic Station neg none 32 cm none negative none neg Type Weight in lbs Pre/Post Dialysis Refused With clothes 182.091308903717 BP Diastolic BP Location Tested BP Systolic BP Type 70 134 sitting Fetus Heart Rate Present A 130's Present Fetus Movement A Yes Comments Patient denies any complaint s. She admits to , denies VB, LOF and CTXs. Ovarian cyst noted on ultrasound. Will continue to monitor at [facility]. RTC in 2 weeks. Flowsheet Date 11/10/2019 Blanco Score Blood Edema Fundus Height Fundus Units Glucose Ketones Leukocytes Nitrite Labor Signs Protein Cervic Dilation Cervic Effacement Cervic Station none 34 cm none Type Weight in lbs Pre/Post Dialysis Refused With clothes 185.444190692339 BP Diastolic BP Location Tested BP Systolic BP Type 78 142 sitting Fetus Heart Rate Present A 140's Present Fetus Movement A Yes Comments Patient denies any complaint s. She admits to , denies VB, LOF and CTXs. labor precautions given. RTC in 2 weeks. Flowsheet Date 11/24/2019 Blanco Score Blood Edema Fundus Height Fundus Units Glucose Ketones Leukocytes Nitrite Labor Signs Protein Cervic Dilation Cervic Effacement Cervic Station neg none 36 cm none negative none neg Type Weight in lbs Pre/Post Dialysis Refused With clothes 188.206211461110 BP Diastolic BP Location Tested BP Systolic BP Type 84 122 sitting Fetus Heart Rate Present A 150's Present Fetus Movement A Yes Comments GBS and STD testing today. S he denies any complaints. She admits to FM, denies VB, LOF and CTXs. labor precautions given. RTC in 1 week. Flowsheet Date 12/01/2019 Blanco Score Blood Edema Fundus Height Fundus Units Glucose Ketones Leukocytes Nitrite Labor Signs Protein Cervic Dilation Cervic Effacement Cervic Station neg none 37 cm none negative none neg Type Weight in lbs Pre/Post Dialysis Refused With clothes 190.786905568740 BP Diastolic BP Location Tested BP Systolic BP Type 78 136 sitting Fetus Heart Rate Present A 140's Present Fetus Movement A Yes Comments Patient admits to irregular contractions and pelvic pressure. She admits to FM, denies VB and LOF. labor precautions given. RTC in 1 week. Flowsheet Date 12/08/2019 Blanco Score Blood Edema Fundus Height Fundus Units Glucose Ketones Leukocytes Nitrite Labor Signs Protein Cervic Dilation Cervic Effacement Cervic Station neg none 38 cm none negative none neg 1cm 30% - 4 Type Weight in lbs Pre/Post Dialysis Refused With clothes 190.551558574009 BP Diastolic BP Location Tested BP Systolic BP Type 80 132 sitting Fetus Heart Rate Present A 140's Present Fetus Movement A Yes Comments Patient admits to FM, denies VB, LOF and CTXs. Labor precautions given. RTC in 1 week. Flowsheet Date 12/15/2019 Blanco Score Blood Edema Fundus Height Fundus Units Glucose Ketones Leukocytes Nitrite Labor Signs Protein Cervic Dilation Cervic Effacement Cervic Station 2+ none 36 cm none negative none 1+ 1cm 30% - 4 Type Weight in lbs Pre/Post Dialysis Refused With clothes 191.271118311781 BP Diastolic BP Location Tested BP Systolic BP Type 92 148 sitting 78 132 sitting Fetus Heart Rate Present A 130's Present Fetus Movement A Yes Comments Patient denies any complaint s. She admits to FM, denies VB, LOF, CTXs, headaches, visula changes and RUQ pain. Labor precautions given. Elective IOL scheduled for Friday12/20/19 at 0600.Urine was collected after performing SVE. Flowsheet Date 01/28/2020 Blanco Score Blood Edema Fundus Height Fundus Units Glucose Ketones Leukocytes Nitrite Labor Signs Protein Cervic Dilation Cervic Effacement Cervic Station Type Weight in lbs Pre/Post Dialysis Refused Weight 159.234898743093 BP Diastolic BP Location Tested BP Systolic BP Type 64 108 sitting Fetus Heart Rate Present Fetus Movement Comments Menstrual History Last Menstrual Date Menses Monthly On Bcp Conception Prior Menses Frequency Hcg Plus Date Menarche Onset Age 1203/19/2019 Genetic Screening And Infection History Question Response Note Patient's Age Will Be 35 Yea rs Or Older At Estimated Date of Delivery false Thalassemia (Malay, Nepali, Mediterranean, Or Background): MCV < 80 false Neural Tube Defect (Meningom yelocele, Spina Bifida, Or Anencephaly) false Congenital Heart Defect false Down Syndrome false Olivier-Sachs (eg, Quaker, Cajun, Bangladeshi-[place]) f alse Jesus Disease false Sickle Cell Disease Or Trait () false Hemophilia Or Other Blood Disorders false Muscular Dystrophy false Cystic Fibrosis false [place]'s Chorea false Mental Retardation/Autism false If Yes, Was Person Tested For Fragile X? false Other Inherited Genetic Or Chromosomal Disorder false Maternal Metabolic Disorder (eg, Type 1 Diabetes , PKU) false Patient Or Baby's Father Had A Child With Defects Not Listed Above false Recurrent Loss, Or A Stillbirth false Medications (including Suppl ements, Vitamins, Herbs, OTC Drugs), Illicit/Recreational Drugs, Alcohol false If Yes, Agent(s) And Strength/Dosage false Any Other Genetic History false Live With Someone With TB Or Exposed To TB false Patient Or Partner Has History Of Genital Herpes false Rash Or Viral Illness Since Last Menstrual Perio d false History Of STD, Gonorrhea, Chlamydia, HPV, Syphi lis true hx of chlamydia Other Infection History false History of HIV false History of Hepatitis false Prior GBS-infected child false Plans and Education First Trimester Discussed Date Discussion Item Discussion Note Discuss ed By 05/11/2019 Anticipated course o f care Discussed with patient. crow 05/11/2019 Alcohol Denies. [email or web address] 05/11/2019 Intimate partner violence Denies. rebecca olsen 05/11/2019 Environmental/work hazards Denie s any hazardous environments. crow 05/11/2019 Screening for aneuploidy Discussed with christopher cardoza. apalmerrn 05/11/2019 Nutrition counseling ; special diet; dietary precautions (mercury, listeriosis) Discussed with patient. apalmerrn 05/11/2019 Childbirth classes/h ospital facilities Discussed with patient. apalmerrn 05/11/2019 HIV and other routin e tests Discussed with patient. apalmerrn 05/11/2019 Risk factors identif ied by history Discussed with patient. apalmerrn 05/11/2019 Weight gain counseling Discussed with kerri martinez. apalmerrn 05/11/2019 Exercise Discussed with patient. apal merrn 05/11/2019 Teratogens Discussed with patient. apal merrn 05/11/2019 Use of any medicatio ns (including supplements, vitamins, herbs, or OTC drugs) PNV apalmerrn 05/11/2019 Plans on breast feeding. ap almerrn 05/11/2019 Tobacco/smoking cess ation counseling (ask, advise, assess, assist, and arrange) Denies. apalmerrn 05/11/2019 Illicit/recreational drugs Denies. a palmerrn 05/11/2019 Dental care Discussed with christopher cardoza. Dental consent given. apalmerrn 05/11/2019 Travel Discussed with patient. apal merrn 05/11/2019 Seat belt use Discussed with patient. apa lmerrn 05/11/2019 Indications for ultrasonography US order given. apalmerrn 05/11/2019 Avoidance of saunas or hot tubs Discussed with patient. apalmerrn 05/11/2019 Toxoplasmosis precau tions (cats/raw meat) Has cats in home. Educated patient on avoiding litter box. apalmerrn Second Trimester Discussed Date Discussion Item Discussion Note Discuss ed By Third Trimester Discussed Date Discussion Item Discussion Note Discuss ed By Delivery Information Delivery Date Delivery Type Labor Anesthesia Weeks Gestation Incision Type Labor Labor Length Hrs Delivered By Post Complications Tubal Sterilization Discharge Date Comments 0 Induce d Regional-Ep idural 39.1 Low Transvers e false afehrenbac her None false 12/20/2019 Discharge Information Feeding Method Contraceptive Method Maternal HG B and HCT Levels
--- OUTSIDE RECORDS SUMMARY | 2025-04-06 01:51 | XMS_ITS | Clinical Summary ---
Author Organization [facility] Address [address] [place] [address] Care Team Providers Care Associate Media Planner Name Role Phone Tony Carolina MD Primary Care Provider [phone] Billy Bradley MD Unavailable [phone] Allergies Active Allergy Reactions Criticality Noted Date Comments Aspirin Hives Medium Diphenhydramine Hives Medium Penicillin V Anaphylaxis High Medications ibuprofen (ADVIL,MOTRIN) 600 mg tabletIndicatio ns:Pain Take 1 tablet (600 mg total) by mouth every 6 (six) hours as needed for pain 30 tablet 3 0 Active Additional Information Patient not taking.Reported on 06/01/2024 FLUoxetine (PROzac) 20 mg capsule Take 1 tablet by mouth daily 4 Active 28 mg iron- 800 mcg tablet 4 Active docusate sodium (Colace) 100 mg capsuleIndicati ons:constipatio n Take 1 capsule (100 mg total) by mouth 2 (two) times a day for 14 days 28 capsule 5 Active Additional Information Patient not taking.Reported on 06/01/2024 Active Problems Problem Noted Date Diagnosed Date Incarcerated umbilical hernia 04/27/2024 Assessment & Plan (06/01/2024 9:29 AM MEDIUM CYCLE SALESPERSON): Okay to return to work as long as the patient has light duty. Continue to avoid heavy lifting for another 3 weeks or so with nothing more than 20 lb. Continue bowel regimen if needed to avoid straining. Continue abdominal binder for comfort. Patient will call us back with any further questions or concerns. Assessment & Plan (04/27/2024 10:26 AM MEDIUM CYCLE SALESPERSON): Given the symptomatic nature we will set the patient up for repair of the umbilical hernia. We will do this via a minimally invasive approach. We have discussed the need for mesh implantation. We have discussed postoperative lifting restrictions. All questions answered. She was in understanding of the plan. Failure to progress in second stage of labor Overview (12/18/2019): Added automatically from request for surgery [id number] Immunizations Immunization Administration Dates Next Due PPD TEST 09/24/2023 Surgical History Surgery Date Site/Laterality Comments SECTION HERNIA REPAIR 05/24/2024 umbilical Medical History Medical History Date Comments PONV (postoperative nausea and vomiting) Depression Anxiety Family History Medical History Relation Name Comments Diabetes Father Hypertension Father Hypertension Mother Relation Name Status Comments Father Alive Mother Alive Social History Tobacco Use Types Packs/Day Years Used Date Smoking Tobacco: Never Smokeless Tobacco: Never Tobacco Cessation:Counseling Given: Not Answered Alcohol Use Standard Drinks/Week Comments No 0 (1 standard drink = 0.6 oz pur e alcohol) AUDIT-C Answer Date Recorded Q1: How often do you have a drink containing alc ohol? Monthly or less 05/18/2024 Q2: How many drinks containi ng alcohol do you have on a typical day when you are drinking? 1 or 2 05/18/2024 Q3: How often do you have si x or more drinks on one occasion? Never 05/18/2024 Personal Safety Answer Date Recorded Have you ever been in or are you currently in a harmful physical or emotional relationship or is someone making you feel afraid or unsafe? Denies 05/24/2024 Comments No Sex and Gender Information Value Date Recorded Sex Assigned at Not on file Legal Sex Female 10:23 AM MEDIUM CYCLE SALESPERSON Gender Identity Not on file Sexual Orientation Not on file Obstetrics History Para Term AB IAB SAB Ectopic Multiple Livin g Live Births 1 1 1 0 1 1 Date Outcome GA Total Labor Labor/2nd/3rd Weight Sex Type Anes PTL Kristal A1 A5 Name Clin 2019 Term 39w 1d 12h 48m 8h 56m/3h 49m/0h 03m 3.551 kg (7 lb 13.3 oz) F CS-LT ranv Epidur al N Livin g 9 9 SU ,GIRL KIMANAHI TEO Red , Aubrey Diane MD Complications:None Delivery Location:This Facil [facility]y ([facility]) Last Filed Vital Signs Vital Sign Reading Time Taken Comments Blood Pressure 104/71 06/01/2024 8:58 AM MEDIUM CYCLE SALESPERSON Pulse 81 06/01/2024 8:58 AM MEDIUM CYCLE SALESPERSON Temperature 36.5 C (97.7 F) 06/01/2024 8:58 AM MEDIUM CYCLE SALESPERSON Respiratory Rate 20 05/24/2024 3:00 PM MEDIUM CYCLE SALESPERSON Oxygen Saturation 98% 06/01/2024 8:58 AM MEDIUM CYCLE SALESPERSON Inhaled Oxygen Concentration - - Weight 76.9 kg (169 lb 9.6 oz) 06/01/2024 8:58 A M MEDIUM CYCLE SALESPERSON Height 167.6 cm (5' 6) 06/01/2024 8:58 AM MEDIUM CYCLE SALESPERSON Body Mass Index 27.37 06/01/2024 8:58 AM MEDIUM CYCLE SALESPERSON Plan of Treatment Health Maintenance Due Date Last Done Comments Breast Cancer Screening-Mammogram 1984 Cervical Cancer Screening 1984 Depression Screening 1984 Hepatitis C Screening 1984 Varicella Vaccines (1 of 2 - 13+ 2-dose series) 1997 Regular Well Visit/Exam 18-64 2002 HPV Vaccines (1 - 3-dose SCD M series) 2011 Covid-19 Vaccine (3 - 2024-2 6 season) 2024 12/28/2020, 12/07/2020 Influenza Vaccine (#1) 2024 3, 05/26/2019, 03/13/2015 DTaP/Tdap/Td Vaccine (4 - Td or Tdap) 09/27/2029 09/28/2019, 07/19/2015, 09/12/2011 Hepatitis B Screening Completed 07/24/2016 , 09/23/2015, 07/19/2015 Pneumococcal vaccine <65 Aged Out No longer eligible based on patient's age to complete this topic Medical Devices Implanted Type Area Product Support Representative Device Identifier Shelf Expiration Date Model / Serial / Lot [employer] Phasix Sepra 4.5in Monofilament Resorbable Round Mesh Surgical [id number] - [id number] Implanted:Qty: 1 on 05/24/2024 by Cristian Champion MD at [facility] N/A: Abdomen [employer] 11/01/2026 [id number] / / [id number] Insurance [facility] PLUS [facility] [employer] Advance Directives For more information, please contact: [phone] * Full Code (Latest Code Status on File) Date Activated Date Inactivated Comments 12/18/2019 7:25 AM 12/21/2019 5:03 PM * Full Code Date Activated Date Inactivated Comments 12/17/2019 7:43 PM 12/18/2019 7:25 AM Full CPR in case of cardiopulmonary arrest Care Teams Associate Media Planner Relationship Specialty Start Date End Date Tony Carolina MD PCP - General 09/15/17 Billy Bradley MD [address] [place] [address] DR CRUZ [address] [address] Donor Services Coordinator Obstetrics and Gynecology 12/21/19
--- OUTSIDE RECORDS SUMMARY | 2025-04-06 01:51 | XMS_ITS | Clinical Summary ---
Author Organization [facility] Address [address] [place] [address] Phone Care Team Providers Care Lining Cutter Name Role Phone Provider, None Primary Care Provider Unavailabl e Allergies Active Allergy Reactions Criticality Noted Date Comments Aspirin Hives 02/24/2018 Diphenhydramine Hives 02/24/2018 Penicillins Anaphylaxis 02/24/2018 Medications albuterol 108 (90 Base) MCG/ACT Aerosol Solution take 2 Puffs by inhalation every 4 hours as needed for Wheezing. 8.5 g 8 Active Additional Information Patient not taking.Reported on 11/01/2018 Vit-Fe Fumarate-FA ( VITAMIN PO) Take by mouth. Act mathieu methylPREDNISol one (MEDROL DOSPACK) 4 MG Tablet Therapy PackIndications :Contact dermatitis, unspecified contact dermatitis type, unspecified trigger Use as per instructions on package. 1 Dose Pack 9 Active Additional Information Patient not taking.Reported on 09/20/2022 Active Problems No known active problems Social History Tobacco Use Types Packs/Day Years Used Date Smoking Tobacco: Never Smokeless Tobacco: Never Tobacco Cessation:Counseling Given: Not Answered Alcohol Use Standard Drinks/Week Comments Not Currently 0 (1 standard drink = 0.6 oz pur e alcohol) AUDIT-C Answer Date Recorded Frequency of Alcohol Consumption Never 11/01/2018 Average Number of Drinks Not on file 019 Frequency of Binge Drinking Not on file 10/06 Sexually Active Control Partners Comments Not Currently Comments No Sex and Gender Information Value Date Recorded Sex Assigned at Not on file Legal Sex Female 3:57 PM CORE MOUNTER Gender Identity Not on file Sexual Orientation Not on file Last Filed Vital Signs Vital Sign Reading Time Taken Comments Blood Pressure 106/70 12/26/2022 12:11 PM CDT Pulse 82 12/26/2022 12:11 PM CDT Temperature 37.5 C (99.5 F) 12/26/2022 12:11 PM CDT Respiratory Rate 16 12/26/2022 12:11 PM CDT Oxygen Saturation 99% 12/26/2022 12:11 PM CDT Inhaled Oxygen Concentration - - Weight 66.7 kg (147 lb) 11/01/2018 1:06 PM CDT Height 167.6 cm (5' 6) 02/24/2018 4:05 PM CORE MOUNTER Body Mass Index 23.73 02/24/2018 4:05 PM CORE MOUNTER Plan of Treatment Health Maintenance Due Date Last Done Comments Hepatitis C Virus (HCV) Screening 1984 Varicella Immunization (1 of 2 - 13+ 2-dose series) 1997 Pap Smear 2005 Cervical Cancer Screening (CCS) 2014 HPV/Cotest 2014 Influenza Immunization (#1) 12/06/202405/08, 03/13/2015 SARS-COV-2 Immunization (3 - season) 2024 12/28/2020, 12/07/2020 Respiratory Syncytial Virus (RSV) Immunization (Adult) (1 - 1-dose 75+ series) 2059 Hepatitis B Immunization Completed 017, 09/23/2015, 07/19/2015 DTaP/Tdap/Td Immunization Discontinued 2019, 07/19/2015 TdaP Immunization Completed 09/28/2019, 07/19/2015 Human Papillomavirus (HPV) Immunization (No Doses Required) Completed Meningococcal Immunization (ACWY) Aged Out No longer eligible based on patient's age to complete this topic Pneumococcal Immunization Combined Aged Out No longer eligible based on patient's age to complete this topic Rotavirus Immunization Aged Out No lo nger eligible based on patient's age to complete this topic Insurance [employer] Care Teams Lining Cutter Relationship Specialty Start Date End Date Provider, None [place] PCP - General 02/24/18
== END 2025-04-06 02:15 | disposition left against medical advice (07) ==
PROVIDERS: Emergency Provider Student in an Organized Health Care Education/Training Program
DX: R10.A1 Flank pain, right side (principal)
CPT/HCPCS: 81001; 99199; 99283